=== PATIENT | female | born 1950 | race Caucasian/White ===

== ENCOUNTER 2016-11-16 23:58 | Emergency (ER) | payer MEDICARE, BC ==
[2005-12-31 16:41] VITALS: BP 131/74
[~2016-11-16] VITALS: Ht 170.2 cm; Wt 147.7 kg
[~2016-11-16 23:58] MED LIST: ALEVE 220MG220 MG PO; AMBIEN 5MG TABLE5 MG PO; AMITRIPTYLINE H25 M1 PO; ASPIR-LOW81 MG PO; ELMIRON 10100 MG/CA1 PO; OMEGA-3 FISH1200 MG PO; PRESERVISION1 SGL PO; PRILOSEC 20MG20 MG PO; PYRIDIUM200 M1 PO; VESICARE10 MG PO
[2016-11-17 00:31] LABS: BASO # 0.1 (0.0-0.2); BASO % 0.8 % (0.0-2.0); EOS # 0.2 (0.0-0.7); EOS % 3.6 % (0-4.0); HEMATOCRIT 41.6 % (37.0-47.0); LYMPH # 2.6 (1.2-3.4); LYMPH % 39.4 % (20.0-51.0); MEAN CELL VOLUME 88 fl (80.0-100.0); MEAN CORPUSCULAR HEMOGLOBIN 30 pg (27.0-31.0); MEAN CORPUSCULAR HGB CONC 34 g/dl (33.0-37.0); MEAN PLATELET VOLUME 9.7 fl (7.4-10.4); MONO # 0.6 (0.1-0.6); MONO % 9.7 % (1.7-9.3); PLATELET COUNT 250 K/mm3 (130-400); RED BLOOD COUNT 4.74 M/mm3 (4.10-5.30); REDCELL DISTRIBUTION WIDTH-CV 12.3 % (11.5-14.5); WHITE BLOOD COUNT 6.6 K/mm3 (4.8-10.8)
[2016-11-17 00:43] LABS: ADJUSTED CALCIUM 9.5 mg/dL (8.4-10.2); ALANINE AMINOTRANSFERASE 33 U/L (9-52); ALBUMIN 3.8 gm/dL (3.5-5.0); ALKALINE PHOSPHATASE 85 U/L (50-136); ANION GAP 7 mmol/L (7-16); BILIRUBIN,TOTAL 0.8 mg/dL (0.0-1.0); BLOOD UREA NITROGEN 19 mg/dL (7-17); CALCIUM 9.3 mg/dL (8.4-10.2); CARBON DIOXIDE 29 mmol/L (22-30); CHLORIDE 104 mmol/L (98-107); CREATININE, serum 0.67 mg/dL (0.52-1.25); GLUCOSE 127 mg/dL (74-106); LIPASE 125 U/L (23-300); POTASSIUM 4.5 mmol/L (3.4-5.0); SODIUM 140 mmol/L (137-145); TOTAL PROTEIN 6.9 gm/dL (6.4-8.2)
[2016-11-17 00:54] LABS: TROPONIN-I < 0.012 ng/mL (0.000-0.034)
[2016-11-17] MEDS ORDERED: ZOCOR 20MG20 MG (01:05)
[2016-11-17] MEDS ORDERED: PROTONIX 40MG T40 MG PO (03:03)
[2016-11-17 03:11] VITALS: BP 114/76; PULSE 69; TEMP 96.8
== END 2016-11-17 03:19 | disposition home or self-care (01) ==
LOC: COL.ER 23:58
PROVIDERS: Emergency Medicine
DX: R07.89 Other chest pain (principal); K21.9 Gastro-esophageal reflux disease without esophagitis; K22.4 Dyskinesia of esophagus
CPT/HCPCS: C9113; J2060

== ENCOUNTER → 2016-11-22 | Outpatient (CLI) | payer MEDICARE, BC ==
[~2016-11-22] MED LIST changes: +PROTONIX 40MG T40 MG PO; +ZOCOR 20MG20 MG
== END ==
LOC: MC.RAD 11:04
DX: Z12.31 Encounter for screening mammogram for malignant neoplasm of breast (principal)

== ENCOUNTER → 2018-01-17 | Outpatient (CLI) | payer MEDICARE, BC | LOC: MC.RAD 11:18 | DX: Z12.31 Encounter for screening mammogram for malignant neoplasm of breast (principal) ==

== ENCOUNTER 2018-04-03 12:03 | Day surgery (SDC) | payer MEDICARE, BC ==
[2005-12-31 16:41] VITALS: BP 131/74
[~2018-04-03] VITALS: Ht 170.2 cm; Wt 100.9 kg
[~2018-04-03 12:03] MED LIST changes: +MASON NATURAL1200 MG PO; -OMEGA-3 FISH1200 MG PO; +ZOCOR 10MG10 MG PO; -ZOCOR 20MG20 MG
[2018-04-03 12:51] VITALS: BP 138/96; PULSE 81; TEMP 98.5
[2018-04-03] MEDS ORDERED: PRILOSEC 20MG20 MG PO (14:36)
[2018-04-03 14:43] VITALS: BP 120/80; PULSE 80; TEMP 97.1
[2018-04-03 14:58] VITALS: BP 117/70; PULSE 66
[2018-04-03 15:13] VITALS: BP 120/63; PULSE 66
== END 2018-04-03 15:30 | disposition home or self-care (01) ==
LOC: SDCO 12:03
DX: K22.2 Esophageal obstruction (principal); K44.9 Diaphragmatic hernia without obstruction or gangrene; K29.30 Chronic superficial gastritis without bleeding; K57.10 Diverticulosis of small intestine without perforation or abscess without bleeding; K59.00 Constipation, unspecified; Z86.010 Personal history of colon polyps; K64.0 First degree hemorrhoids; K57.30 Diverticulosis of large intestine without perforation or abscess without bleeding
CPT/HCPCS: C1726; J2250; J3010; J7030

== ENCOUNTER → 2019-02-01 | Outpatient (CLI) | payer MEDICARE, BC | LOC: MC.RAD 11:15 | DX: Z12.31 Encounter for screening mammogram for malignant neoplasm of breast (principal) ==

== ENCOUNTER 2023-11-09 10:29 | Outpatient (CLI) | payer MEDICARE, BC ==
[2005-12-31 16:41] VITALS: BP 131/74
[~2023-11-09 10:29] MED LIST changes: +CALTRATE 600 +1 TAB PO; +HCTZ12.5TAB PO; +MOBIC15 MG PO; +OMEGA-3 1000 MG1 CAP PO
[2023-11-09 10:50] VITALS: BP 121/78; PULSE 89; TEMP 98.7
== END 2023-11-09 12:06 ==
LOC: EUO 10:29
DX: M81.0 Age-related osteoporosis without current pathological fracture (principal)
CPT/HCPCS: J3489

== ENCOUNTER 2024-08-14 12:46 | Emergency (ER) | payer MEDICARE, BC ==
[~2024-08-14] VITALS: Ht 170.2 cm; Wt 104.5 kg
[2024-08-14] MEDS ORDERED: NORVASC 10MG10 MG PO (12:48)
[2024-08-14] MEDS ORDERED: Tdap Vaccine 0.5 ML SYRINGE IM ONE (13:00)
[2024-08-14 13:07] LABS: BASO % 0.6 % (0.0-2.0); EOS # 0.3 K/mm3 (0.0-0.7); GRAN # 3.7 K/mm3 (1.4-6.5); GRAN % 55.9 % (42.2-75.2); HEMATOCRIT 42.7 % (37.0-47.0); HEMOGLOBIN 14.7 g/dl (12.5-16.0); LYMPH # 1.8 K/mm3 (1.2-3.4); MEAN CELL VOLUME 89 fl (80.0-100.0); MEAN CORPUSCULAR HEMOGLOBIN 31 pg (27-31); MEAN CORPUSCULAR HGB CONC 34 g/dl (33.0-37.0); MEAN PLATELET VOLUME 9.4 fl (7.4-10.4); MONO # 0.7 K/mm3 (0.1-0.6); MONO % 10.9 % (1.7-9.3); PLATELET COUNT 274 K/mm3 (130-400)
[2024-08-14 13:31] LABS: ALANINE AMINOTRANSFERASE 14 U/L (0-55); ALBUMIN 3.7 g/dL (3.4-4.8); ALKALINE PHOSPHATASE 88 U/L (40-150); ANION GAP 8 mmol/L (7-16); AST,SGOT 16 U/L (5-34); BILIRUBIN,TOTAL 0.5 mg/dL (0.2-1.2); BLOOD UREA NITROGEN 19 mg/dL (10-20); CALCIUM 9.7 mg/dL (8.4-10.2); CHLORIDE 110 mEq/L (98-107); CREATININE, serum 0.73 mg/dL (0.57-1.11); GLUCOSE 121 mg/dL (70-99); POTASSIUM 3.9 mEq/L (3.5-4.5); SODIUM 141 mEq/L (136-145); TOTAL PROTEIN 6.9 g/dl (6.2-8.1)
[2024-08-14 13:41] LABS: TROPONIN-I < 0.010 ng/mL (0.00-0.033)
[2024-08-14] MEDS ORDERED: CEPHALEXIN500 M1 PO (15:46)
[2024-08-14 15:53] VITALS: BP 151/83; PULSE 88
== END 2024-08-14 16:00 | disposition home or self-care (01) ==
LOC: COL.ER 12:46
PROVIDERS: Family Medicine
DX: S01.01XA Laceration without foreign body of scalp, initial encounter (principal); W10.9XXA Fall (on) (from) unspecified stairs and steps, initial encounter